=== PATIENT | male | born 1940 | race Caucasian/White ===

== ENCOUNTER 2021-04-08 08:10 | Inpatient (IN) | payer MEDICARE, OTHER ==
[~2021-04-08] VITALS: Ht 162.6 cm; Wt 76.4 kg
[2021-04-08] MEDS ORDERED: IV NORMAL SALINE 1,000ML 1,000 ML IV ONE (08:30)
--- NOTE | 2021-04-08 08:36 | PHYS DOC ---
General Adult EDM: Chief Complaint: SHORTNESS OF BREATH HPI: HPI: 81-year-old male presents via EMS with shortness of breath. The patient has been feeling under the weather for a couple weeks after family visited for the holidays. He has been especially tired the last few days and felt more short of breath this morning. When EMS arrived, they found him to be short of breath with oxygen saturation in the 70s. The patient is not on any oxygen at home. He has no previous diagnosis problems. He was vaccinated against Covid x1. Denies fever or chills. He has been in bed a lot the last several days. (RICH DE JESUS DO) Review of Systems: Review of Systems: Constitutional: Denies fever or chills. Body aches, fatigue Eyes: Denies change in visual acuity HENT: Denies nasal congestion or sore throat Respiratory: shortness of breath Cardiovascular: Denies chest pain or edema GI: Denies abdominal pain, nausea, vomiting, bloody stools or diarrhea : Denies dysuria Musculoskeletal: Denies back pain or joint pain Integument: Denies rash Neurologic: Denies headache, focal weakness or sensory changes Endocrine: Denies polyuria or polydipsia Lymphatic: Denies swollen glands Psychiatric: Denies depression or anxiety (RICH DE JESUS DO) Physical Exam: PE: Constitutional: Well developed, well nourished, no acute distress, non-toxic appearance. [] HENT: Normocephalic, atraumatic, bilateral external ears normal, oropharynx moist, no oral exudates, nose normal. [] Eyes: PERRLA, EOMI, conjunctiva normal, no discharge. [] Neck: Normal range of motion, no tenderness, supple, no stridor. [] Cardiovascular: Heart rate regular rhythm, no murmur [] Lungs & Thorax: Bilateral breath sounds diminished [] Abdomen: Bowel sounds normal, soft, no tenderness, no masses, no pulsatile masses. [] Skin: Warm, dry, no erythema, no rash. [] Back: No tenderness, no CVA tenderness. [] Extremities: No tenderness, no cyanosis, no clubbing, ROM intact, no edema. [] Neurologic: Alert and oriented X 3, normal motor function, normal sensory function, no focal deficits noted. [] Psychologic: Affect normal, judgement normal, mood normal. [] (RICH DE JESUS DO) EKG: EKG: [] (RICH DE JESUS DO) Radiology/Procedures: Radiology/Procedures: [] Impressions: XR CHEST 1V History: Shortness of breath. Comparison: None. Technique: Portable AP radiograph of the chest. Findings: The lungs are adequately inflated. There are bilateral lower lobe predominant consolidations. Small bilateral pleural effusions. No pneumothorax. The cardiac silhouette is enlarged. Pulmonary vasculature is within normal limits. Degenerative changes of the spine and shoulders. Soft tissues are unremarkable. Impression: 1. Cardiomegaly with bilateral airspace opacities and small pleural effusions. Findings may represent pulmonary edema or multifocal infection. Electronically signed by: Santino Jackson MD (04/08/2021 8:49 AM) [facility] DICTATED AND SIGNED BY: SANTINO JACKSON MD DATE: 04/08/21 0847 CC: RICH DE JESUS DO; PCP,NO ~MTH0 0 Exam Date: 04/08/2021 9:31 AM CTA CHEST Indication: Reason: SOB, covid+ / Spl. Instructions: GFR 53, REDUCED DOSE 75ML OMNI 350 / History: . TECHNIQUE: CT angiogram of the chest was performed following the administration of nonionic intravenous contrast for evaluation of pulmonary embolus. 3D MIPs were created and reviewed on an independent workstation to assist in diagnosis and clinical management. One or more of the following dose reduction techniques were utilized: *Automated exposure control (AEC) *Adjustment of mA and/or kV according to patient size *Use of iterative reconstruction technique *CT scan done according to ALARA, or ALARA/IMAGE GENTLY COMPARISON: Radiograph from earlier the same day. FINDINGS: There is adequate opacification of the pulmonary arteries. No central intravascular filling defects are appreciated. There is no evidence for central pulmonary embolus. The aorta is normal in caliber without evidence for dissection. Aortic calcifications are present. The heart is enlarged without pericardial effusion. Coronary artery calcifications are present. No lymphadenopathy is seen. Calcified pleural plaques are seen bilaterally. Patchy infiltrates and/or atelectasis is seen in the lungs bilaterally, most prominent in the lung bases. No pleural effusion or pneumothorax. The central airways are patent. Images of the upper abdomen demonstrate gallstones in a gallbladder distended up to 8 x 5 cm. Degenerative changes are seen in the spine. IMPRESSION: No evidence for central pulmonary embolus. Patchy bilateral infiltrates and/or atelectasis. Calcified pleural plaques noted bilaterally. Electronically signed by: Bess Mendez MD (04/08/2021 10:07 AM) [facility] DICTATED AND SIGNED BY: BESS MENDEZ MD DATE: 04/08/21 0957 CC: RICH DE JESUS DO; PCP,NO ~MTH0 0 (RICH DE JESUS DO) Heart Score: C/O Chest Pain: N/A Risk Factors: Risk Factors: DM, Current or recent (<one month) smoker, HTN, HLP, family history of CAD, obesity. Risk Scores: Score 0 - 3: 2.5% MACE over next 6 weeks - Discharge Home Score 4 - 6: 20.3% MACE over next 6 weeks - Admit for Clinical Observation Score 7 - 10: 72.7% MACE over next 6 weeks - Early Invasive Strategies (RICH DE JESUS DO) Course & Med Decision Making: Course & Med Decision Making Pertinent Labs and Imaging studies reviewed. (See chart for details) The patient is Covid positive. His chest x-ray also shows bilateral infiltrates consistent with Covid. I will treat him with Rocephin, Decadron and azithromycin. He is on [address] angiogram of the chest does not show pulmonary embolus but confirms bilateral pneumonia consistent with Covid. I will admit him to the hospital. Spoke with Dr. Mandujano and he has accepted the patient for admission. [] (RICH DE JESUS DO) Course & Med Decision Making See Dr. De Jesus chart for details. Pt. Admit to Dr. Mandujano. Impression: 1. Respiratory Failue - Hypoxia 2. COVID Pneumonia 3. Hypertension 4. Glucose 186 Pt. unable to maintain sats.- Started on BiPap 18/8, R 16, Oxygen 70%, TV= 637, R =22, 94% sat. VE 14 0020 mn. 04/09/2021. Accelerated HTN 170/100- Clonidine alos ordered. Pt. now maintain stats 94 % on Bipap setting above . BP down 140/80. 0130 hrs. 04/09/2021 Pt remains ED Hold because of Staff shortages in [facility]. Pt. still holding in ED. No hospital beds in [facility] due to nursing shortage. All surrounding hospital on high volume. Holding pt.s in ED. Not accepting transfer's. Pt. tolerating BiPap well and holding sats., BP now 136/50. Currentlly sleeping. Pt. endorse to Dr. De Jesus at shift change while awaiting main hospital bed. Critical care time 30 min.s (JENNY KAUFFMAN MD) Junie Disclaimer: Dragon Disclaimer: This electronic medical record was generated, in whole or in part, using a voice recognition dictation system. (RICH DE JESUS DO) Dragon Disclaimer: 6 (JENNY KAUFFMAN MD) Departure Departure: Impression: Primary Impression: Pneumonia due to COVID-19 virus Disposition: ADMITTED INPATIENT Admitting Physician: Roverto Mandujano (RICH DE JESUS DO) Condition: GUARDED Referrals: PCP,AYDE (PCP) Attending Signature Attending Signature I have participated in the care of this patient and I have reviewed and agree with all pertinent clinical information above including history, exam, and recommendations. (JENNY KAUFFMAN MD) Dragon Disclaimer This chart was dictated in whole or in part using Voice Recognition software in a busy, high-work load, and often noisy Emergency Department environment. It may contain unintended and wholly unrecognized errors or omissions. (JENNY KAUFFMAN MD) RICH DE JESUS DO Apr 08, 2021 08:36 JENNY KAUFFMAN MD Apr 09, 2021 00:19
--- NOTE | 2021-04-08 08:51 | RAD ---
XR CHEST 1V History: Shortness of breath. Comparison: None. Technique: Portable AP radiograph of the chest. Findings: The lungs are adequately inflated. There are bilateral lower lobe predominant consolidations. Small b ilateral pleural effusions. No pneumothorax. The cardiac silhouette is enlarged. Pulmonary vasculatur e is within normal limits. Degenerative changes of the spine and shoulders. Soft tissues are unremark able. Impression: 1. Cardiomegaly with bilateral airspace opacities and small pleural effusions. Findings may represen t pulmonary edema or multifocal infection. Electronically signed by: Santino Borja MD (04/08/2021 8:49 AM) [facility]
[2021-04-08 09:03] LABS: BASO % 0 % (0-3); EOS % 0 % (0-3); LYMPH # 0.8 x10^3/uL (1.0-4.8); LYMPH % 10 % (24-48); MEAN CORPUSCULAR HEMOGLOBIN 34 pg (25-35); MEAN CORPUSCULAR HGB CONC 34 g/dL (31-37); MEAN CORPUSCULAR VOLUME 98 fL (79-100); MONO # 0.7 x10^3/uL (0.0-1.1); MONO % 10 % (0-9); NEUT # 5.8 x10^3uL (1.8-7.7); NEUT % 80 % (31-73); PLATELET COUNT 242 x10^3/uL (140-400); RED BLOOD COUNT 4.17 x10^6/uL (4.30-5.70); RED CELL DISTRIBUTION WIDTH 13.1 % (11.5-14.5); WHITE BLOOD COUNT 7.3 x10^3/uL (4.0-11.0)
--- NOTE | 2021-04-08 09:04 | EKG ---
[address] [address] Test Date: 2021-04-08 Test Time: 08:57:47 Pat Name: TAE MAR Department: Room: Gender: M Customer Services Manager: ROSANNE : 1940 Requested By: RICH DE JESUS Order Number: [id number] Reading MD: Hung Castellon MD Measurements Intervals [place] Rate: 90 P: 71 GA: 182 QRS: -2 QRSD: 64 T: 43 QT: 356 QTc: 440 Interpretive Statements SINUS RHYTHM NON-SPECIFIC ST/T CHANGES Electronically Signed On 04-10-2021 16:27:51 GEOPHYSICAL OBSERVER by Hung Castellon MD
[2021-04-08 09:12] LABS: CALCIUM 8.5 mg/dL (8.5-10.1); CREATININE 1.3 mg/dL (0.7-1.3); GFR 53.1
[2021-04-08 09:18] LABS: ALBUMIN 2.8 g/dL (3.4-5.0); ALBUMIN/GLOBULIN RATIO 0.6 (1.0-1.7); TOTAL BILIRUBIN 0.6 mg/dL (0.2-1.0); TOTAL PROTEIN 7.2 g/dL (6.4-8.2)
[2021-04-08 09:18] LABS: INFLUENZA A PATIENT NEGATIVE (NEGATIVE); INFLUENZA B PATIENT NEGATIVE (NEGATIVE)
[2021-04-08] MEDS ORDERED: DEXAMETHASONE SOD PHOS 10 MG/ML VIAL. IV ONE (09:30)
[2021-04-08] MEDS ORDERED: AZITHROMYCIN 250 MG TABLET. PO ONE (09:30)
[2021-04-08] MEDS ORDERED: IOHEXOL 350 MG/ML 100 ML VIAL. IV ONE (09:45)
[2021-04-08] MEDS ORDERED: IV NORMAL SALINE 50ML 50 ML ONE (10:06)
[2021-04-08] MEDS ORDERED: cefTRIAXone SODIUM 1 GM VIAL ONE (10:06)
--- NOTE | 2021-04-08 10:10 | RAD ---
Exam Date: 04/08/2021 9:31 AM CTA CHEST Indication: Reason: SOB, covid+ / Spl. Instructions: GFR 53, REDUCED DOSE 75ML OMNI 350 / History: . TECHNIQUE: CT angiogram of the chest was performed following the administration of nonionic intrave nous contrast for evaluation of pulmonary embolus. 3D MIPs were created and reviewed on an [employer] workstation to assist in diagnosis and clinical management. One or more of the following dose red uction techniques were utilized: *Automated exposure control (AEC) *Adjustment of mA and/or kV according to patient size *Use of iterative reconstruction technique *CT scan done according to ALARA, or ALARA/IMAGE GENTLY COMPARISON: Radiograph from earlier the same day. FINDINGS: There is adequate opacification of the pulmonary arteries. No central intravascular filling defects are appreciated. There is no evidence for central pulmonary embolus. The aorta is normal in caliber without evidence for dissection. Aortic calcifications are present. The heart is enlarged without pericardial effusion. Coronary artery calcifications are present. No lymphadenopathy is seen. Calcified pleural plaques are seen bilaterally. Patchy infiltrates and/or atelectasis is seen in the lungs bilaterally, most prominent in the lung bases. No pleural effusion or pneumothorax. The central airways are patent. Images of the upper abdomen demonstrate gallstones in a gallbladder distended up to 8 x 5 cm. Degene rative changes are seen in the spine. IMPRESSION: No evidence for central pulmonary embolus. Patchy bilateral infiltrates and/or atelectasis. Calcified pleural plaques noted bilaterally. Electronically signed by: Neri Mendez MD (04/08/2021 10:07 AM) [facility]
[2021-04-08] MEDS ORDERED: cloNIDine HCL 0.1 MG TABLET PO ONE (12:00)
[2021-04-08] MEDS ORDERED: ONDANSETRON PF 4 MG/2 ML VIAL. IVP PRN (16:15)
[2021-04-08] MEDS ORDERED: ACETAMINOPHEN 325 MG TABLET PO PRN (16:15)
[2021-04-09] MEDS ORDERED: cloNIDine TTS-2 1 PATCH PATCH TD ONE ×2 (00:20→00:22)
[2021-04-09] MEDS ORDERED: IPRATRPIUM/ALBUTEROL 0.5/2.5MG 3 ML NEBU. ONE (00:20)
[2021-04-09] MEDS ORDERED: cloNIDine HCL 0.1 MG TABLET ONE (00:20)
[2021-04-09] MEDS: IPRATRPIUM/ALBUTEROL 0.5/2.5MG 3 ML NEBU. NEB SCH ×5 (00:32→20:00)
[2021-04-09] MEDS: cloNIDine HCL 0.2 MG TABLET PO PRN (00:32)
[2021-04-09 08:26] LABS: BASO % 0 % (0-3); EOS % 0 % (0-3); HEMATOCRIT 37.5 % (39.0-53.0); HEMOGLOBIN 12.6 g/dL (13.0-17.5); LYMPH # 0.7 x10^3/uL (1.0-4.8); LYMPH % 8 % (24-48); MEAN CORPUSCULAR HEMOGLOBIN 33 pg (25-35); MEAN CORPUSCULAR HGB CONC 34 g/dL (31-37); MEAN CORPUSCULAR VOLUME 99 fL (79-100); MONO # 0.7 x10^3/uL (0.0-1.1); MONO % 8 % (0-9); NEUT # 7.4 x10^3uL (1.8-7.7); NEUT % 84 % (31-73); PLATELET COUNT 268 x10^3/uL (140-400); RED BLOOD COUNT 3.78 x10^6/uL (4.30-5.70); RED CELL DISTRIBUTION WIDTH 13.3 % (11.5-14.5); WHITE BLOOD COUNT 8.9 x10^3/uL (4.0-11.0)
[2021-04-09] MEDS ORDERED: methylPREDNISolone SOD SUCC PF 125 MG/2 ML VIAL. IV ONE (08:30)
[2021-04-09 08:36] LABS: CALCIUM 8.2 mg/dL (8.5-10.1); CREATININE 1.3 mg/dL (0.7-1.3); GFR 53.3; POTASSIUM 3.9 mmol/L (3.5-5.1)
[2021-04-09] MEDS ORDERED: IV NORMAL SALINE 50ML 50 ML ONE (08:45)
[2021-04-09] MEDS ORDERED: cefTRIAXone SODIUM 1 GM VIAL ONE (08:45)
[2021-04-09] MEDS ORDERED: cloNIDine TTS-2 1 PATCH PATCH TD SCH (09:00)
[2021-04-09] MEDS ORDERED: AZITHROMYCIN 500 MG VIAL. IV ONE (09:53)
[2021-04-09] MEDS ORDERED: IV NORMAL SALINE 250ML 250 ML ONE (09:53)
[2021-04-09] MEDS: AZITHROMYCIN 500 MG in IV NORMAL SALINE 250ML 250 ML IV SCH (09:56)
--- NOTE | 2021-04-09 12:19 | HP ---
DATE OF SERVICE: 04/09/2021 ADMIT DATE: 04/08/2021 ATTENDING PHYSICIAN: Dr. Mandujano. CHIEF COMPLAINT: Shortness of breath. HISTORY OF PRESENT ILLNESS: The patient is a 80-year-old gentleman admitted through the ED. He has been there for the last 24 hours. He has been short of breath and he had an extensive workup, which found a positive coronavirus infection despite the fact that he has been fully vaccinated. His CT of the chest demonstrated significant abnormalities with bilateral infiltrates, ground glass appearing. There is significant scarring and pleural plaquing consistent with asbestosis. He denied any asbestos exposure. I suspect he has been exposed in the past due to the fact that he was a career in the [employer] person. He served for about 30 years in the [employer], he is now retired. The patient was given supplemental oxygen along with BiPAP overnight/ by the time I saw him the next morning, on the morning of 04/09, he was down to nasal cannula with marginal saturations about 89%. Clinically, appears stable. I do not think he has impending respiratory just yet, that is his baseline. 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 He had been a heavy smoker up to 3 packs a day for many years. ALLERGIES: He has no recorded drug allergies. CURRENT MEDICATIONS: From the [place] system indicates that he was taking no prescription meds. He was given albuterol, azithromycin, ceftriaxone and ondansetron in the ED. ALLERGIES: He has no recorded drug allergies. He has had COVID vaccines and up-to-date. SOCIAL HISTORY: He was a heavy smoker, 2-3 packs a day for many years. He has since quit. He denies any alcohol use. FAMILY HISTORY: Father of complications of heart disease, unspecified age. Mother of pneumonia, she was also diabetic. He does not have a history of diabetes. REVIEW OF SYSTEMS: Significant for the dry nonproductive cough. No fevers, chills, COVID exposure. All other systems reviewed and they turned to be negative. PHYSICAL EXAMINATION: GENERAL: When I saw him, this is a very pleasant elderly gentleman who is fairly alert and oxygenating better. VITAL SIGNS: His initial vital signs when I saw him showed a blood pressure 162/81 mmHg, pulse is 68 and regular, respirations 22 unlabored. He was afebrile. Oxygen saturations 93% on BiPAP. He was down to 85% on 6 liters nasal cannula, we are in the process of weaning him down. HEENT: Head is without trauma. Pupils are reactive. Sclerae nonicteric. Oropharynx is clear. NECK: Supple. LUNGS: Coarse rhonchi bilaterally. CARDIOVASCULAR: Showed distant heart tones. No gallops. ABDOMEN: Soft. EXTREMITIES: Without edema. NEUROLOGIC: Focally intact. Speech is fluent. SKIN: Warm and dry. PERTINENT LABORATORY AND X-RAY STUDIES: CT of the chest as noted. Hemoglobin is 14.0 g/dL with a white count of 7300. Electrolytes within normal range. Creatinine stable at 1.3 mg/dL. Nonfasting blood sugar 186. Potassium is 4.0 mEq. Cardiac enzymes were negative for coronary ischemia. ASSESSMENT: 1. A 80-year-old gentleman with acute on chronic respiratory failure. 2. Incidental finding of COVID exposure, whether this is due to COVID pneumonia remains to be seen. 3. Probable underlying bacterial pneumonia. 4. Advanced chronic obstructive pulmonary disease due to tobacco use. 5. Pulmonary plaques consistent with asbestosis. PLAN: 1. Admit to our ICU. 2. We are weaning down his oxygen requirement. 3. Continue IV antibiotics. 4. Continue Solu-Medrol. 5. Nebulizer therapy. 6. COVID precautions and isolation. HECTOR DR: Mark TID: [id number]
--- NOTE | 2021-04-09 20:00 | NUR ---
PT ARRIVED TO UNIT VIA EMS. PT IS ON NRB MASK AT TIME OF ADMISSION. PTS O2 SATS ON ADMISSION ARE 86. PT PLACED ON 15L HFNC WELL AND 02 SATURATIONS IMPROVED TO 90%. PT IS ORIENTED TO ROOM AND PROCEDURES. PT IS OFFERED FOOD AND RINK BUT STATES THEY FED HIM IN THE ER. PT IS RESTIG IN BED AT THIS TIME. DR GOODSON NOTIFIED OF ADMISSION. WILL CONTINUE TO MONITOR.
[2021-04-09 20:43] VITALS: BP 118/39
[2021-04-09] MEDS: ENOXAPARIN 40 MG/0.4 ML SYRINGE. SQ SCH (20:59)
[2021-04-09 21:44] VITALS: BP 128/45
[2021-04-09 23:43] VITALS: BP 132/68
[2021-04-10] VITALS (20 sets, daily range): BP systolic 100–180; BP diastolic 40–105
[2021-04-10] MEDS: IPRATRPIUM/ALBUTEROL 0.5/2.5MG 3 ML NEBU. NEB SCH (08:00)
[2021-04-10] MEDS ORDERED: BUDESONIDE 0.5 MG/2 ML NEBU ONE (08:49)
[2021-04-10] MEDS: BUDESONIDE 0.5 MG/2 ML NEBU NEB SCH ×2 (09:00→21:09)
[2021-04-10] MEDS ORDERED: IPRATRPIUM/ALBUTEROL 0.5/2.5MG 3 ML NEBU. NEB PRN (09:00)
[2021-04-10 10:34] LABS: BASO % 0 % (0-3); EOS % 0 % (0-3); HEMOGLOBIN 12.2 g/dL (13.0-17.5); LYMPH # 0.7 x10^3/uL (1.0-4.8); LYMPH % 5 % (24-48); MEAN CORPUSCULAR HEMOGLOBIN 34 pg (25-35); MEAN CORPUSCULAR HGB CONC 34 g/dL (31-37); MEAN CORPUSCULAR VOLUME 99 fL (79-100); MONO # 0.6 x10^3/uL (0.0-1.1); MONO % 5 % (0-9); NEUT # 11.2 x10^3uL (1.8-7.7); NEUT % 89 % (31-73); PLATELET COUNT 308 x10^3/uL (140-400); RED BLOOD COUNT 3.63 x10^6/uL (4.30-5.70); RED CELL DISTRIBUTION WIDTH 13.4 % (11.5-14.5); WHITE BLOOD COUNT 12.5 x10^3/uL (4.0-11.0)
[2021-04-10 10:36] LABS: ALBUMIN 2.2 g/dL (3.4-5.0); ALBUMIN/GLOBULIN RATIO 0.6 (1.0-1.7); CALCIUM 7.7 mg/dL (8.5-10.1); CREATININE 1.1 mg/dL (0.7-1.3); GFR 64.6; TOTAL BILIRUBIN 0.4 mg/dL (0.2-1.0)
[2021-04-10] MEDS: FAMOTIDINE 20 MG TABLET PO SCH (11:45)
[2021-04-10] MEDS: ZINC SULFATE 220 MG CAPSULE. PO SCH (11:45)
[2021-04-10] MEDS: cloNIDine HCL 0.2 MG TABLET PO PRN (11:45)
[2021-04-10] MEDS: DEXAMETHASONE SOD PHOS 4 MG/ML VIAL. IVP SCH ×2 (11:46→15:21)
[2021-04-10] MEDS: LACTOBACILLUS RHAMNOSUS GG 1 CAPSULE. PO SCH ×2 (11:46→21:09)
[2021-04-10] MEDS: ASCORBIC ACID 1,000 MG TABLET PO SCH (11:46)
[2021-04-10] MEDS: AZITHROMYCIN 500 MG in IV NORMAL SALINE 250ML 250 ML IV SCH (13:00)
[2021-04-10] MEDS ORDERED: DEXTROSE 50% 25 GM / 50ML DISP.SYRIN. IV PRN (15:45)
[2021-04-10] MEDS ORDERED: FUROSEMIDE 40 MG/4 ML VIAL IVP ONE (16:00)
[2021-04-10] MEDS ORDERED: CHOLECALCIFEROL (VITAMIN D3) 50,000 UNIT CAPSULE PO SCH (16:00)
[2021-04-10] MEDS ORDERED: PIOG30TA62 PO (16:32)
[2021-04-10] MEDS ORDERED: LISI20TA18 PO (16:32)
[2021-04-10] MEDS ORDERED: LEVO25CA3 PO (16:32)
[2021-04-10] MEDS ORDERED: SIMV40TA18 PO (16:32)
[2021-04-10] MEDS: INSULIN LISPRO 300 UNITS/3 ML VIAL. SQ SCH (17:00)
[2021-04-10] MEDS: ENOXAPARIN 40 MG/0.4 ML SYRINGE. SQ SCH (19:15)
[2021-04-10] MEDS: INSULIN GLARGINE SYRINGE. SQ SCH (21:10)
--- NOTE | 2021-04-10 22:48 | PN ---
DATE: 04/10/2021 SUBJECTIVE: The patient is resting, slightly propped up in bed, slightly tachypneic. He was on BiPAP machine, on FiO2 of 90%, maintaining his oxygen saturation at 95% on 15 liters by nasal cannula and 100% via nonrebreather mask, he continued to desaturate down to 86%. He denied any chest pain. Denied any chills, rigors or fever. Continued to have cough with scanty whitish sputum. PHYSICAL EXAMINATION: GENERAL: When I examined him, he looked well, slightly tachypneic, but there was no pallor, jaundice, cyanosis or thyromegaly. No jugular venous distention. No limb edema. VITAL SIGNS: His heart rate was 47, blood pressure was 154/61, his temperature was 98.9, respiratory rate was 25 and oxygen saturation was 95% on BiPAP machine with an FiO2 of 90%. HEAD, EYES, EARS, NOSE, AND THROAT: Normocephalic, atraumatic. NECK: Supple. HEART: Showed normal first and second heart sounds. No gallop, rub or murmur. CHEST: Shows central trachea, equally reduced expansion, reduced air entry, vesicular breath sounds, very few bibasilar basal crepitation. I could not really appreciate any rhonchi. ABDOMEN: Distended, soft, nontender. NEUROLOGIC: He was awake, alert, responding appropriately. All cranial nerves intact. He moves extremities without difficulty. His intake over the last 24 hours was 1050, no output was recorded. LABORATORY DATA: This morning showed his white cell count to be 12,500, hemoglobin 12, hematocrit 36, MCV 99 and platelet count of 308,000 with manual differential showed 89% polymorphs, 5% lymphocytes, 5% monocytes. His chemistry this morning showed a serum sodium of 143, potassium 4, chloride 107, bicarbonate 27, anion gap of 9, BUN 29, creatinine 1.1. Estimated GFR was 64 mL per minute. His glucose was 301, calcium was 7.7. Total bilirubin, AST, ALT, alkaline phosphatase are normal. Total protein was 6, albumin was 2.2. His coronavirus by rapid testing was positive. His PCR is still pending. His blood cultures are so far negative with no growth after 2 days. His chest x-ray showed cardiomegaly with bilateral airspace opacities and small pleural effusion, finding may represent pulmonary edema or multifocal infection. CT angio of the chest showed no evidence of central pulmonary embolus, patchy bilateral infiltrate and/or atelectasis, calcified pleural plaques noted bilaterally. ASSESSMENT: In summary, this is a 80-year-old male patient who was admitted with acute hypoxic respiratory failure, COVID-19 pneumonia, hypertension, hyperglycemia. PLAN: To continue with IV antibiotic. Continue with IV steroids together with Combivent by nebulizer. Continue with vitamin C, zinc sulfate together with Lovenox for DVT prophylaxis. We will ask the pharmacist whether he qualifies for remdesivir. CHLOE/ROB DR: Chana TID: [id number]
[2021-04-11] VITALS (16 sets, daily range): BP systolic 112–170; BP diastolic 43–93
[2021-04-11] MEDS: LEVOTHYROXINE 50 MCG TABLET PO SCH (06:07)
--- NOTE | 2021-04-11 06:15 | NUR ---
Pt awake in bed at change of shift watching TV with 15L HFNC & 15L NRB mask on with O2 sats 88-91%. Pt A&Ox3, can be forgetful at times but very pleasant with cares and assessments. Pt refused HS snack but did take pills whole without difficulty. Pt wore BiPAP from 2129 till after shift change, with only 3 small breaks, tolerated well. Pt stated that he "can actually breathe better with this thing on." Pt both cont and incont. of urine during shift, using urinal 3 times and incont twice during sleep hours. Pt sleep well during night. Pt TQ2 in bed with pillow if he herself has not already turned, noticed improvement in O2 sat when laying on side. Calmoseptine applied to coccyx, redness noted.
[2021-04-11 06:51] LABS: HEMATOCRIT 37.1 % (39.0-53.0); HEMOGLOBIN 12.3 g/dL (13.0-17.5); RED BLOOD COUNT 3.7 x10^6/uL (4.30-5.70); RED CELL DISTRIBUTION WIDTH 13.6 % (11.5-14.5); WHITE BLOOD COUNT 11.8 x10^3/uL (4.0-11.0)
[2021-04-11 07:16] LABS: ALBUMIN 2.1 g/dL (3.4-5.0); ALBUMIN/GLOBULIN RATIO 0.5 (1.0-1.7); CALCIUM 7.7 mg/dL (8.5-10.1); CREATININE 1.2 mg/dL (0.7-1.3); GFR 58.4; POTASSIUM 4.2 mmol/L (3.5-5.1); TOTAL BILIRUBIN 0.4 mg/dL (0.2-1.0); TOTAL PROTEIN 6.1 g/dL (6.4-8.2)
[2021-04-11] MEDS: BUDESONIDE 0.5 MG/2 ML NEBU NEB SCH ×2 (08:31→19:33)
--- NOTE | 2021-04-11 08:52 | PDOC2 ---
WIL HEREDIA AS400 ANALYST 04/11/21 0852: CARDIAC CONSULT DATE OF CONSULT DOS: DATE: 04/11/21 TIME: 08:51 REASON FOR CONSULT Reason for Consult bradycardia REFERRING PHYSICIAN Referring Physician Dr. Nguyen SOURCE Source: Chart review, Patient HPI History of Present Illness This is a 80 yo male who presented secondary to shortness of breath and fatigue. Was noted to be COVID +. Has been bradycardiac, which prompted this consultation. Lowest HR 36 overnight. Has clonidine patch from ED and was given oral clonidine for hypertension. Patient denies any chest pain, dizziness, diaphoresis, or nausea/vomiting. No previous known history of bradycardia. PAST MEDICAL HISTORY Cardiovascular: HTN Pulmonary: COPD Endocrine: Diabetes, Hypothyroidism PAST SURGICAL HISTORY Past Surgical History: No pertinent history FAMILY HISTORY Family History: Diabetes, Heart Disease SOCIAL HISTORY Smoke: Quit ALCOHOL: none Drugs: None CURRENT MEDICATIONS Current Medications Current Medications Sodium Chloride 1,000 ml @ 1,000 mls/hr 1X ONCE IV Last administered on 04/08/21at 09:09; Start 04/08/21 at 08:30; Stop 04/08/21 at 09:37; Status DC Ceftriaxone Sodium 1 gm/ Sodium Chloride 50 ml @ 100 mls/hr 1X ONCE IV Last administered on 04/08/21at 10:11; Start 04/08/21 at 09:30; Stop 04/08/21 at 09:59; Status DC Azithromycin (Zithromax) 500 mg 1X ONCE PO Last administered on 04/08/21at 10:10; Start 04/08/21 at 09:30; Stop 04/08/21 at 09:37; Status DC Dexamethasone Sodium Phosphate (Decadron) 10 mg 1X ONCE IV Last administered on 04/08/21at 10:11; Start 04/08/21 at 09:30; Stop 04/08/21 at 09:37; Status DC Iohexol (Omnipaque 350 Mg/ml) 100 ml 1X ONCE IV Last administered on 04/08/21at 09:48; Start 04/08/21 at 09:45; Stop 04/08/21 at 09:46; Status DC Sodium Chloride 50 ml @ As Directed STK-MED ONCE .ROUTE ; Start 04/08/21 at 10:06; Stop 04/08/21 at 10:06; Status DC Ceftriaxone Sodium (Rocephin) 1 gm STK-MED ONCE .ROUTE ; Start 04/08/21 at 10:06; Stop 04/08/21 at 10:06; Status DC Clonidine HCl (Catapres) 0.2 mg 1X ONCE PO Last administered on 04/08/21at 12:57; Start 04/08/21 at 12:00; Stop 04/08/21 at 12:28; Status DC Ondansetron HCl (Zofran) 4 mg PRN Q4HRS PRN IVP NAUSEA/VOMITING; Start 04/08/21 at 16:15; Stop 04/09/21 at 16:14; Status DC Acetaminophen (Tylenol) 650 mg PRN Q4HRS PRN PO FEVER > 100.3'F; Start 04/08/21 at 16:15; Stop 04/09/21 at 16:14; Status DC Clonidine HCl (Catapres) 0.2 mg PRN Q1HR PRN PO HYPERTENSION Last administered on 04/10/21at 11:45; Start 04/09/21 at 00:15 Clonidine HCl (Catapres Tts-2) 1 patch ONCE ONCE TD Last administered on 04/09/21at 00:31; Start 04/09/21 at 00:22; Stop 04/09/21 at 00:23; Status DC Clonidine HCl (Catapres Tts-2) 1 patch WEEKLY TD ; Start 04/09/21 at 09:00 Albuterol/ Ipratropium (Duoneb) 3 ml STK-MED ONCE .ROUTE ; Start 04/09/21 at 00:20; Stop 04/09/21 at 00:20; Status DC Clonidine HCl (Catapres Tts-2) 1 patch STK-MED ONCE TD ; Start 04/09/21 at 00:20; Stop 04/09/21 at 00:21; Status DC Clonidine HCl (Catapres) 0.1 mg STK-MED ONCE .ROUTE ; Start 04/09/21 at 00:20; Stop 04/09/21 at 00:21; Status DC Albuterol/ Ipratropium (Duoneb) 3 ml RTQID NEB Last administered on 04/09/21at 17:45; Start 04/09/21 at 00:23; Stop 04/10/21 at 08:50; Status DC Ceftriaxone Sodium 1 gm/ Sodium Chloride 50 ml @ 100 mls/hr Q24H IV Last administered on 04/10/21at 11:52; Start 04/09/21 at 09:00 Azithromycin 500 mg/Sodium Chloride 250 ml @ 250 mls/hr Q24H IV Last administered on 04/10/21at 13:00; Start 04/09/21 at 10:00 Methylprednisolone Sodium Succinate (SOLU-Medrol 125MG VIAL) 60 mg 1X ONCE IV Last administered on 04/09/21at 08:55; Start 04/09/21 at 08:30; Stop 04/09/21 at 08:31; Status DC Sodium Chloride 50 ml @ As Directed STK-MED ONCE .ROUTE ; Start 04/09/21 at 08:45; Stop 04/09/21 at 08:45; Status DC Ceftriaxone Sodium (Rocephin) 1 gm STK-MED ONCE .ROUTE ; Start 04/09/21 at 08:45; Stop 04/09/21 at 08:46; Status DC Sodium Chloride 250 ml @ As Directed STK-MED ONCE .ROUTE ; Start 04/09/21 at 09:53; Stop 04/09/21 at 09:53; Status DC Azithromycin (Zithromax) 500 mg STK-MED ONCE IV ; Start 04/09/21 at 09:53; Stop 04/09/21 at 09:53; Status DC Dexamethasone Sodium Phosphate (Decadron) 4 mg [id number] IVP Last administered on 04/10/21at 15:21; Start 04/10/21 at 09:00 Zinc Sulfate (Orazinc) 220 mg DAILY PO Last administered on 04/10/21at 11:45; Start 04/10/21 at 09:00 Guaifenesin (Mucinex Er) 600 mg BID PO Last administered on 04/10/21at 21:09; Start 04/09/21 at 21:00 Famotidine (Pepcid) 20 mg DAILY PO Last administered on 04/10/21at 11:45; Start 04/10/21 at 09:00 Enoxaparin Sodium (Lovenox 40mg Syringe) 40 mg Q24H SQ Last administered on 04/10/21at 19:15; Start 04/09/21 at 19:15 Ascorbic Acid (Vitamin C) 1,000 mg DAILY PO Last administered on 04/10/21at 11:46; Start 04/10/21 at 09:00 Lactobacillus Rhamnosus (Culturelle) 1 cap BID PO Last administered on 04/10/21at 21:09; Start 04/10/21 at 09:00 Albuterol/ Ipratropium (Duoneb) 3 ml PRN QID PRN NEB SHORTNESS OF BREATH Last administered on 04/10/21at 11:46; Start 04/10/21 at 09:00 Budesonide (Pulmicort) 0.5 mg RTBID NEB Last administered on 04/11/21at 08:31; Start 04/10/21 at 09:00 Budesonide (Pulmicort) 0.5 mg STK-MED ONCE .ROUTE ; Start 04/10/21 at 08:49; Stop 04/10/21 at 08:49; Status DC Vitamin D (Vitamin D3) 50,000 unit WEEKLY PO Last administered on 04/10/21at 18:19; Start 04/10/21 at 16:00 Furosemide (Lasix) 40 mg 1X ONCE IVP Last administered on 04/10/21at 18:19; Start 04/10/21 at 16:00; Stop 04/10/21 at 16:01; Status DC Insulin Human Lispro (HumaLOG) 0-9 UNITS TIDWMEALS SQ Last administered on 04/10/21at 17:00; Start 04/10/21 at 17:00 Dextrose (Dextrose 50%-Water Syringe) 12.5 gm PRN Q15MIN PRN IV SEE COMMENTS; Start 04/10/21 at 15:45 Insulin Glargine (Lantus Syringe) 20 unit QHS SQ Last administered on 04/10/21at 21:10; Start 04/10/21 at 21:00 Levothyroxine Sodium (Synthroid) 50 mcg DAILY06 PO Last administered on 04/11/21at 06:07; Start 04/11/21 at 06:00 Active Scripts Active Reported Pioglitazone Hcl 30 Mg Tablet 30 Mg PO DAILY Levothyroxine (Levothyroxine Sodium) 25 Mcg Capsule 25 Mcg PO DAILY06 Simvastatin 40 Mg Tablet 1 Tab PO QHS Lisinopril 20 Mg Tablet 1 Tab PO DAILY ALLERGIES Allergies: Coded Allergies: No Known Drug Allergies (Unverified , 04/08/21) ROS Review of Systems 14 point ROS conducted with pertinent positives noted above in HPI PHYSICAL EXAM General: Alert, Oriented X3, Cooperative, No acute distress HEENT: Atraumatic, Mucous membr. moist/pink Lungs: Other (on NRB) Heart: Regular rate (SB, rate 55) Abdomen: Soft, No tenderness Extremities: No edema, Normal pulses Skin: No breakdown Neuro: Normal speech, Sensation intact Psych/Mental Status: Mental status NL MUSCULOSKELETAL: Osteoarthritic changes both hands VITALS Vital Signs Vital Signs Date Time Temp Pulse Resp B/P (MAP) Pulse Ox O2 Delivery O2 Flow Rate FiO2 04/11/21 08:30 96 BiPAP/CPAP 04/11/21 07:00 46 20 142/93 (109) 04/11/21 06:05 98.0 04/10/21 20:00 30.0 LABS LABS Laboratory Tests Test 04/10/21 09:27 04/10/21 18:37 04/10/21 21:14 04/11/21 05:43 White Blood Count 12.5 x10^3/uL (4.0-11.0) 11.8 x10^3/uL (4.0-11.0) Red Blood Count 3.63 x10^6/uL (4.30-5.70) 3.70 x10^6/uL (4.30-5.70) Hemoglobin 12.2 g/dL (13.0-17.5) 12.3 g/dL (13.0-17.5) Hematocrit 36.0 % (39.0-53.0) 37.1 % (39.0-53.0) Mean Corpuscular Volume 99 fL (79-100) 100 fL (79-100) Mean Corpuscular Hemoglobin 34 pg (25-35) 33 pg (25-35) Mean Corpuscular Hemoglobin Concent 34 g/dL (31-37) 33 g/dL (31-37) Red Cell Distribution Width 13.4 % (11.5-14.5) 13.6 % (11.5-14.5) Platelet Count 308 x10^3/uL (140-400) 299 x10^3/uL (140-400) Neutrophils (%) (Auto) 89 % (31-73) Lymphocytes (%) (Auto) 5 % (24-48) Monocytes (%) (Auto) 5 % (0-9) Eosinophils (%) (Auto) 0 % (0-3) Basophils (%) (Auto) 0 % (0-3) Neutrophils # (Auto) 11.2 x10^3uL (1.8-7.7) Lymphocytes # (Auto) 0.7 x10^3/uL (1.0-4.8) Monocytes # (Auto) 0.6 x10^3/uL (0.0-1.1) Eosinophils # (Auto) 0.0 x10^3/uL (0.0-0.7) Basophils # (Auto) 0.0 x10^3/uL (0.0-0.2) Sodium Level 143 mmol/L (136-145) 145 mmol/L (136-145) Potassium Level 4.0 mmol/L (3.5-5.1) 4.2 mmol/L (3.5-5.1) Chloride Level 107 mmol/L (98-107) 107 mmol/L (98-107) Carbon Dioxide Level 27 mmol/L (21-32) 28 mmol/L (21-32) Anion Gap 9 (6-14) 10 (6-14) Blood Urea Nitrogen 29 mg/dL (8-26) 27 mg/dL (8-26) Creatinine 1.1 mg/dL (0.7-1.3) 1.2 mg/dL (0.7-1.3) Estimated GFR (Cockcroft-Gault) 64.6 58.4 BUN/Creatinine Ratio 26 (6-20) 23 (6-20) Glucose Level 301 mg/dL (70-99) 253 mg/dL (70-99) Calcium Level 7.7 mg/dL (8.5-10.1) 7.7 mg/dL (8.5-10.1) Total Bilirubin 0.4 mg/dL (0.2-1.0) 0.4 mg/dL (0.2-1.0) Aspartate Amino Transf (AST/SGOT) 69 U/L (15-37) 55 U/L (15-37) Alanine Aminotransferase (ALT/SGPT) 44 U/L (16-63) 43 U/L (16-63) Alkaline Phosphatase 93 U/L (46-116) 102 U/L (46-116) Total Protein 6.0 g/dL (6.4-8.2) 6.1 g/dL (6.4-8.2) Albumin 2.2 g/dL (3.4-5.0) 2.1 g/dL (3.4-5.0) Albumin/Globulin Ratio 0.6 (1.0-1.7) 0.5 (1.0-1.7) Glucose (Fingerstick) 302 mg/dL (70-99) 348 mg/dL (70-99) NX-[id number]-Type Natriuretic Peptide 630 pg/mL (0-449) ASSESSMENT/PLAN Assessment/Plan 1. Acute respiratory failure secondary to COVID PNA 2. Sinus bradycardia; lowest 36 overnight. No pauses. Presently 55. Has on clonidine patch and has received oral clonidine for HTN 3. Hypertension; labile 4. Diabetes, II 5. Hypothyroidism Recommendations Discontinue clonidine. Remove clonidine patch Add lisinopril for BP control Add hydralazine IV PRN TSH Ongoing lung optimization, treatment of COVID GONZALO HAMMONDS MD 04/12/21 2255: CARDIAC CONSULT ASSESSMENT/PLAN Assessment/Plan Late entry for 04/11/21 Pt. seen and examined. Agree with above GAS LEAK INSPECTOR HELPER note. Supportive care. WIL HEREDIA APRN Apr 11, 2021 08:52 GONZALO HAMMONDS MD Apr 12, 2021 22:55
[2021-04-11] MEDS: INSULIN LISPRO 300 UNITS/3 ML VIAL. SQ SCH ×3 (09:07→17:00)
[2021-04-11] MEDS: FAMOTIDINE 20 MG TABLET PO SCH (09:12)
[2021-04-11] MEDS: DEXAMETHASONE SOD PHOS 4 MG/ML VIAL. IVP SCH ×2 (09:12→14:00)
[2021-04-11] MEDS: LACTOBACILLUS RHAMNOSUS GG 1 CAPSULE. PO SCH ×2 (09:12→20:47)
[2021-04-11] MEDS: ZINC SULFATE 220 MG CAPSULE. PO SCH (09:12)
[2021-04-11] MEDS: ASCORBIC ACID 1,000 MG TABLET PO SCH (09:12)
[2021-04-11] MEDS: LISINOPRIL 10 MG TABLET PO SCH (09:15)
[2021-04-11] MEDS: AZITHROMYCIN 500 MG in IV NORMAL SALINE 250ML 250 ML IV SCH (10:46)
[2021-04-11 13:43] LABS: BGAS PH 7.44 (7.35-7.46)
--- NOTE | 2021-04-11 14:09 | RAD ---
EXAM: Chest, single view. HISTORY: Shortness of air. COMPARISON: 04/08/2021 FINDINGS: A frontal view of the chest is obtained. There is slight increased diffuse peripheral predo minant interstitial and alveolar infiltrate. There is pleural thickening and multifocal calcified ple ural plaque. There is a stable cardiac silhouette. There is no pneumothorax. IMPRESSION: 1. Slight increase in diffuse peripheral predominant infiltrate. 2. Pleural thickening and multifocal calcified pleural plaque. Electronically signed by: Jeanine Wade MD (04/11/2021 2:07 PM) [id number]
[2021-04-11] MEDS ORDERED: methylPREDNISolone SOD SUCC PF 125 MG/2 ML VIAL. IV ONE (14:15)
[2021-04-11] MEDS ORDERED: HALOPERIDOL LACT 5 MG/ML VIAL. IVP PRN (17:15)
[2021-04-11] MEDS: ENOXAPARIN 40 MG/0.4 ML SYRINGE. SQ SCH (20:47)
[2021-04-11] MEDS: INSULIN GLARGINE SYRINGE. SQ SCH (21:05)
[2021-04-12] VITALS (13 sets, daily range): BP systolic 136–196; BP diastolic 50–99
--- NOTE | 2021-04-12 00:28 | NUR ---
Pt keeps ripping off BiPap mask throughout the shift. Pt yells, "I just want a break!" Educated pt that he needs to call staff so he can safely transition to the HFNC and NRB. Pt understood after several attempts to educate pt after his sats were in the 80's. Pt dropped to the high 60's after pt rips off the BiPap. Told pt he can get a break in 2 hours and he was ok with that.
--- NOTE | 2021-04-12 01:08 | PN ---
DATE: 04/11/2021 SUBJECTIVE: The patient is resting, slightly propped up in bed, in no apparent respiratory distress. He is awake and alert. He is on BiPAP, maintaining his oxygen saturation at 95-96% on FiO2 of 90% on BiPAP. He did have what seemed to be a panic attack this morning during which he stated that he was unable to breathe, although he was on 15 liters by nasal cannula. PHYSICAL EXAMINATION: GENERAL: When I examined him this morning, he looked pale, not jaundiced or cyanosed, no lymphadenopathy, no thyromegaly, no jugular venous distention. No lower limb edema. VITAL SIGNS: His heart rate was 51, blood pressure was 151/57, his temperature was 97.9, respiratory rate was 16 and oxygen saturation was 95%. HEAD, EYES, EARS, NOSE, AND THROAT: Normocephalic, atraumatic. NECK: Supple. HEART: Showed normal first and second heart sounds. No gallop, rub or murmur. CHEST: Showed central trachea, equal bilateral expansion, air entry, vesicular breath sounds with bilateral basal crepitation posteriorly. I could not appreciate any rhonchi. ABDOMEN: Distended, soft, nontender. NEUROLOGIC: He was grossly intact. His intake was 750, output 270. LABORATORY DATA: As of this morning, his white cell count was 11,800, hemoglobin 12, hematocrit 37, MCV 100 and platelet count 299,000. His chemistry showed a serum sodium 145, potassium 4.2, chloride 107, bicarbonate 28, anion gap of 10, BUN 27, creatinine 1.2. Estimated GFR was 58 mL per minute. His glucose was 253, calcium was 7.7. Total bilirubin, ALT, alkaline phosphatase were normal. AST slightly elevated. BNP was 650, total protein 6.1, albumin was 2.1. ASSESSMENT: 1. Acute hypoxic respiratory failure. 2. COVID-19 pneumonia. 3. Hypertension. 4. Hyperglycemia. 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 6. He has also marked bradycardia, felt to be likely due to clonidine, so clonidine patch and oral clonidine were discontinued. PLAN: To continue with IV antibiotic. Continue with IV steroids together with Combivent via nebulizer. Continue with vitamin C, zinc sulfate together with Lovenox for DVT prophylaxis. CHLOE/VERNA/JOSE DR: CHLOE/jerilyn TID: [id number]
--- NOTE | 2021-04-12 02:23 | NUR ---
Tried taking pt off of BiPap due to pt yelling "I'm getting up! Ok? Good night!" Placed pt on 15 HFNC and 15 NRB. Pt desat to the 60's-70s while on 30 liters. Educated pt that he needs to keep his BiPap on and he states, "Well I guess so."
[2021-04-12] MEDS: hydrALAZINE 20 MG/ML VIAL. IV PRN ×2 (04:28→08:49)
[2021-04-12 06:31] LABS: HEMATOCRIT 38.5 % (39.0-53.0); HEMOGLOBIN 12.8 g/dL (13.0-17.5); RED BLOOD COUNT 3.89 x10^6/uL (4.30-5.70); RED CELL DISTRIBUTION WIDTH 13.5 % (11.5-14.5); WHITE BLOOD COUNT 12.1 x10^3/uL (4.0-11.0)
[2021-04-12] MEDS: LEVOTHYROXINE 50 MCG TABLET PO SCH (06:31)
[2021-04-12 06:51] LABS: ALBUMIN 2.1 g/dL (3.4-5.0); ALBUMIN/GLOBULIN RATIO 0.5 (1.0-1.7); CALCIUM 6.7 mg/dL (8.5-10.1); CREATININE 1.1 mg/dL (0.7-1.3); GFR 64.6; POTASSIUM 3.8 mmol/L (3.5-5.1); TOTAL BILIRUBIN 0.5 mg/dL (0.2-1.0); TOTAL PROTEIN 6.3 g/dL (6.4-8.2)
[2021-04-12] MEDS ORDERED: guaiFENesin/CODEINE 100mg/10mg 5 ML LIQUID PO PRN (07:45)
[2021-04-12] MEDS ORDERED: LIDOCAINE 2% JELLY 6ML IN APPLICATOR. MM ONE (07:45)
[2021-04-12] MEDS: INSULIN LISPRO 300 UNITS/3 ML VIAL. SQ SCH ×3 (08:00→17:00)
[2021-04-12] MEDS: ZINC SULFATE 220 MG CAPSULE. PO SCH (08:45)
[2021-04-12] MEDS: LACTOBACILLUS RHAMNOSUS GG 1 CAPSULE. PO SCH (08:45)
[2021-04-12] MEDS: FAMOTIDINE 20 MG TABLET PO SCH (08:45)
[2021-04-12] MEDS: ASCORBIC ACID 1,000 MG TABLET PO SCH (08:45)
[2021-04-12] MEDS: LISINOPRIL 10 MG TABLET PO SCH (08:45)
[2021-04-12] MEDS: BUDESONIDE 0.5 MG/2 ML NEBU NEB SCH (08:45)
[2021-04-12] MEDS: DEXAMETHASONE SOD PHOS 4 MG/ML VIAL. IVP SCH ×2 (08:46→14:00)
[2021-04-12] MEDS: MORPHINE SULFATE 2 MG/ML DISP.SYRIN. IV PRN ×3 (09:00→10:05)
[2021-04-12] MEDS ORDERED: MORPHINE SULFATE 2 MG/ML DISP.SYRIN. ONE (09:09)
[2021-04-12] MEDS ORDERED: MORPHINE SULFATE 10 MG/ML SYRINGE. IV ONE (09:42)
[2021-04-12] MEDS ORDERED: MORPHINE SULFATE 10 MG/ML SYRINGE. ONE (09:42)
[2021-04-12] MEDS ORDERED: MORPHINE SULFATE 10 MG/ML SYRINGE. IM ONE (09:45)
[2021-04-12] MEDS: AZITHROMYCIN 500 MG in IV NORMAL SALINE 250ML 250 ML IV SCH (10:00)
[2021-04-12] MEDS ORDERED: MORPHINE SULFATE 2 MG/ML DISP.SYRIN. IV ONE (13:15)
[2021-04-12] MEDS: MORPHINE SULFATE 30 MG/30 ML 30 ML IV PRN ×2 (13:27→20:47)
--- NOTE | 2021-04-12 19:30 | NUR ---
Patient was on BIPAP at the beginning of the shift with an Oxygen Saturation of 96%. Around 9 am this RN entered the patients room to administer medications. This RN put the patient on 15L NC and 15L NRB to administer medications and give the patient something to drink and after several minutes the patients O2 Sats began to drop into the lower 80's after drinking and taking medication so I put him back on the BIPAP and within a few minutes the patient took his BIPAP off so I entered the room to put the BIPAP back on but the patient was coughing continuously and was saying he couldn't catch his breath and that he felt like something bad was happening to him and that he thought he was dying. I told the patient that he needed to put the BIPAP back on in order to keep his Oxygen Sats up but the patient said he couldn't wear the BIPAP anymore that he just couldn't take it anymore and that he guess he was just going to then. So the patient was put back on 15L NC and 15L NRB and Dr. Nguyen was called to inform him of the change in patient condition and to receive orders. Morphine and Ativan were ordered and administered. Patient became relaxed and somewhat sedated. The patients son was called and notified in the change of the patients condition. Aubrey Ross the patients son came to the hospital to assess the condition of his father and was in agreement to place the patient on comfort care at this time. Dr. Nguyen was informed of this decision and ordered a morphine OXIDE FURNACE TENDER gtt to be administered. The gtt was started and the patient was placed on comfort care. The patient is currently in bed on 15L NRB with an oxygen sat of 78% resting comfortably. The patients son was also updated on the current status of his father around 1800. [facility]
--- NOTE | 2021-04-12 19:34 | NUR ---
Nursing note: Per gilberto RN Kelle, Dr. Nguyen was contacted regarding an incident where pt removed bipap, stated "I'm dying"; orders for morphine push and ativan received. Kelle spoke with son, Aubrey, about comfort care and he was agreeable. Pt family chose [facility] in [place], . Pt currently on 4mg/h morphine NOVELTY DIPPER. Orders changed to med/surg for comfort care.
[2021-04-12] MEDS: INSULIN GLARGINE SYRINGE. SQ SCH (20:05)
--- NOTE | 2021-04-13 00:10 | PN ---
DATE: 04/12/2021 SUBJECTIVE: The patient is not doing well. He basically has been extremely restless, agitated with worsening hypoxemia. Given his worsening condition due to acute hypoxic respiratory failure, ARDS and COVID pneumonia, superimposed on his underlying chronic obstructive pulmonary disease, decision was made to switch him to comfort care after notifying his son and now, he is on 15 liters by nasal cannula and nonrebreather mask, maintaining his oxygen saturation down to 78%. PHYSICAL EXAMINATION: GENERAL: When I examined him this afternoon, there was no pallor, jaundice, cyanosis or thyromegaly. No jugular venous distention. No lower limb edema. VITAL SIGNS: Her heart rate was 79. His blood pressure was 184/89, respiratory rate was 13, and oxygen saturation was 78% on 15 liters by nonrebreather mask. HEAD, EYES, EARS, NOSE, AND THROAT: Normocephalic, atraumatic. NECK: Supple. HEART: Normal first and second heart sounds. No gallop or murmur. CHEST: Shows central trachea, equal bilateral chest expansion, air entry, vesicular breath sounds, bilateral basal crepitation. I could not appreciate any rhonchi. ABDOMEN: Distended, soft, nontender. NEUROLOGIC: He was lethargic, but arousable. All cranial nerves intact. He moves extremities without difficulty. LABORATORY DATA: This morning showed a white cell count 12,000, hemoglobin 13, hematocrit 39, MCV 99 and platelet count 328,000. His chemistry showed a serum sodium 145, potassium 3.8, chloride 107, bicarbonate 28, anion gap of 10, BUN 23, creatinine 1.1. Estimated GFR was 65 mL per minute. His glucose is 287, calcium was 6.7. Total bilirubin, AST, ALT, alkaline phosphatase were normal. Total protein 6.3, albumin 2.1. ASSESSMENT: 1. Acute hypoxic respiratory failure. 2. COVID-19 pneumonia. 3. Adult respiratory distress syndrome. 4. Hypertension. 5. Hyperglycemia. 6. Asbestosis and chronic obstructive pulmonary disease. PLAN: To continue with comfort care, now he is on 100% 15 liter nonrebreather mask. He is also on morphine as well as Ativan. SALOMNÓ DR: Chana TID: [id number]
[2021-04-13] MEDS: MORPHINE SULFATE 30 MG/30 ML 30 ML IV PRN ×2 (04:06→09:25)
--- NOTE | 2021-04-13 05:04 | NUR ---
Nursing shift note: Pt reacting to touch/light pain through shift; sats high 70s-low 80s on 15L NRB. RR 9-12. Pt on 4mg/h morphine gtt to maintain comfort, decrease air hunger. Turned and oral care q2h.
[2021-04-13 06:00] VITALS: BP 109/51
--- NOTE | 2021-04-13 06:24 | NUR ---
Shift note: At approx. 0545 pt sounded wet; suctioned and repositioned. Pt began desatting to the low 70s, gasping, labored breathing. Morphine bolus of 1mg given, increased cont dose to 6mg/hr. Pt labored breathing continued with significant substernal retractions, gasping sounds. Pt BLUEBERRY GROWER increased to 8mg/hr. Currently pt is satting at 54%, other VS as noted in 06 charting.
--- NOTE | 2021-04-13 09:30 | NUR ---
nursing note: Pt's son was called this morning to discuss plan of care. Pt's son requested 02 be turned down, and pt switched from NRB to HFNC at 10 L. pt was repositioned and 02 saturation stayed at 50% on 10 L HFNC. At this time pt is having periods of apneic breathing and gasping for air. pt's morphine drip is running at 8 ml/hr. pt was repositioned and will ctm.
--- NOTE | 2021-04-13 11:26 | NUR ---
Pronouncement: This nurse was called to bedside at 1057 with concerns that patient had stopped breathing and no heartbeat was present. no spontaneous movement noted. Nursing supervisor photocomposition notified and two person verification of no pulse and no breathing was done at bedside with Sandra Castrejon, abbey and mari avalos rn. pt was pronounced at 1101. Dr. Nguyen notified at 1105. Aubrey Ross (son) and next of kin was notified at 1110. Son reports he will come to hospital to obtain pt's belongings this evening. [facility] notified and in transport to come pecan picker the body.
--- NOTE | 2021-04-13 13:22 | DS ---
DATE OF DISCHARGE: 04/13/2021 DISCHARGE SUMMARY HOSPITAL COURSE: The patient is a 80-year-old male patient, who was admitted through the Emergency Room with worsening shortness of breath. He was diagnosed with COVID-19 pneumonia and acute hypoxic respiratory failure with a background of advanced chronic obstructive pulmonary disease and also pulmonary asbestosis. The patient was treated with IV antibiotic, steroids and remdesivir and was started on BiPAP. The patient's oxygen requirement has worsened and he was actually up to 30 liters of oxygen by nasal cannula and nonrebreather mask. Eventually, he was put on BiPAP machine, but the patient opted for comfort care and was started on morphine and Ativan after discussing this with his son and the patient's oxygenation has gradually deteriorated despite being on 100% nonrebreather mask. He was a DNR/DNI and apparently the patient was noted to have apneic episode and he was evaluated by the nursing staff and was found to have no audible heart sounds, no palpable pulsation, no spontaneous breathing and was pronounced at around 11:00 in the morning on 04/13/2021. CAUSES OF : 1. Cardiopulmonary arrest. 2. Acute hypoxic respiratory failure. 3. Adult respiratory distress syndrome. 4. COVID-19 pneumonia, possible superimposed community-acquired pneumonia. 5. Chronic obstructive pulmonary disease. 6. Pulmonary asbestosis. SOUTH DR: Chana TID: [id number]
== END 2021-04-13 11:01 | DRG 177 ==
LOC: EDBD 08:10 → ER 08:10 → ER HOLD 16:13 → ICU 04-09 17:07
PROVIDERS: ADMIT Hospitalist; ATTEND Hospitalist
PROC: XW033E5 Introduction of Remdesivir Anti-infective into Peripheral Vein, Percutaneous Approach, New Technology Group 5 (ICD-10-PCS; 2021-04-08)
PROC: 5A0935A Assistance with Respiratory Ventilation, Less than 24 Consecutive Hours, High Flow/Velocity Cannula (ICD-10-PCS; 2021-04-09)
PROC: 5A09357 Assistance with Respiratory Ventilation, Less than 24 Consecutive Hours, Continuous Positive Airway Pressure (ICD-10-PCS; principal; 2021-04-10)
PROC: 5A0935A Assistance with Respiratory Ventilation, Less than 24 Consecutive Hours, High Flow/Velocity Cannula (ICD-10-PCS; 2021-04-10)
PROC: 5A09357 Assistance with Respiratory Ventilation, Less than 24 Consecutive Hours, Continuous Positive Airway Pressure (ICD-10-PCS; 2021-04-11)
PROC: 5A09357 Assistance with Respiratory Ventilation, Less than 24 Consecutive Hours, Continuous Positive Airway Pressure (ICD-10-PCS; 2021-04-12)
PROC: 5A09357 Assistance with Respiratory Ventilation, Less than 24 Consecutive Hours, Continuous Positive Airway Pressure (ICD-10-PCS; 2021-04-13)
DX: U07.1 COVID-19 (principal); J15.9 Unspecified bacterial pneumonia; J96.21 Acute and chronic respiratory failure with hypoxia; J12.82 Pneumonia due to coronavirus disease 2019; J44.0 Chronic obstructive pulmonary disease with (acute) lower respiratory infection; E03.9 Hypothyroidism, unspecified; E11.65 Type 2 diabetes mellitus with hyperglycemia; F41.0 Panic disorder [episodic paroxysmal anxiety]; I11.9 Hypertensive heart disease without heart failure; I46.9 Cardiac arrest, cause unspecified; J61 Pneumoconiosis due to asbestos and other mineral fibers; Z51.5 Encounter for palliative care; Z66 Do not resuscitate; Z82.49 Family history of ischemic heart disease and other diseases of the circulatory system; Z83.3 Family history of diabetes mellitus; Z87.891 Personal history of nicotine dependence
CPT/HCPCS: 36415; 71045; 71275; 80048; 80053; 82803; 82947; 83880; 84443; 84484; 85025; 85027; 87040; 93005; 94640; 94660; 96361; 96365; 96375; J0360; J0456; J0696; J1100; J1650; J1815; J1940; J2060; J2270; J2930; J7050; Q9967; 99285-25; J7030